=== PATIENT | female | born 1965 | race American Indian/Alaskan Native ===

== ENCOUNTER 2018-06-17 17:29 | Inpatient (IN) | payer SELFPAY ==
[2018-06-17] MEDS ORDERED: ZOFRAN IV ONE (18:04)
[2018-06-17] MEDS ORDERED: NACL 0.9% 500 ML 500 ML IV ONE ×2 (18:04→19:48)
[2018-06-17] MEDS ORDERED: MORPHINE IV ONE ×3 (18:04→23:44)
--- NOTE | 2018-06-17 18:06 | Emergency Department Report ---
<PRASHANT DEXTER - Last Filed: 06/17/18 19:48> ED General Adult HPI - General Chief complaint: Abdominal Pain Stated complaint: ABDOMINAL PAIN Time Seen by Provider: 06/17/18 17:47 Source: patient, RN notes reviewed Mode of arrival: Stretcher Limitations: No Limitations - History of Present Illness Initial comments: This is a 53-year-old female who is not known to this provider previously. She does not have a local primary care doctor. She denies history of abdominal surgeries. She reports history of "enlarged heart", and possible vertigo. She was last evaluated for these years ago. She presents to the ER with a complaint of nontraumatic right-sided abdominal pain. The abdominal pain is in the right lower quadrant, radiates up to the flank and back. The pain is sharp and constant, increases with palpation, decreases with rest. There is no vomiting, not sure she's had a fever, not sure if she is having irritative or obstructive urinary symptoms. Her symptoms have been constant for the past few days, and they are getting worse. -: Gradual Location: abdomen Severity scale (0 -10): 10 Quality: aching Consistency: constant Improves with: rest Worsens with: movement Associated Symptoms: loss of appetite, malaise, weakness. denies: confusion, chest pain, cough, diaphoresis, fever/chills, headaches, rash, seizure, shortness of breath, syncope - Related Data Home Medications Medication Instructions Recorded Confirmed Last Taken No Known Home Medications [No 06/18/18 06/18/18 Unknown Reported Home Medications] Allergies Allergy/AdvReac Type Severity Reaction Status Date / Time No Known Allergies Allergy Unverified 06/17/18 20:31 ED Review of Systems Eyes: denies: vision change ENT: denies: epistaxis Cardiovascular: denies: chest pain Gastrointestinal: abdominal pain Genitourinary: denies: dysuria Musculoskeletal: back pain Skin: denies: lesions Neurological: weakness Psychiatric: denies: anxiety ED Past Medical Hx - Past Medical History Additional medical history: Vertigo, Enlarged Heart - Surgical History Past Surgical History?: No - Social History Smoking Status: Current Every Day Smoker Substance Use Type: None - Medications Home Medications: Home Medications Medication Instructions Recorded Confirmed Last Taken Type No Known Home Medications [No 06/18/18 06/18/18 Unknown History Reported Home Medications] ED Physical Exam - General Limitations: No Limitations General appearance: alert, in distress, obese - Head Head exam: Present: atraumatic, normocephalic - Eye Eye exam: Present: normal appearance - ENT ENT exam: Present: normal exam, normal orophraynx, mucous membranes moist, normal external ear exam - Neck Neck exam: Present: normal inspection, full ROM. Absent: tenderness, meningismus - Respiratory Respiratory exam: Present: normal lung sounds bilaterally. Absent: respiratory distress - Cardiovascular Cardiovascular Exam: Present: regular rate, normal rhythm, normal heart sounds. Absent: bradycardia, tachycardia, irregular rhythm, systolic murmur, diastolic murmur, rubs, gallop - GI/Abdominal GI/Abdominal exam: Present: soft, tenderness. Absent: distended, guarding, rebound, rigid, pulsatile mass - Extremities Exam Extremities exam: Present: normal inspection, full ROM, other (2+ pulses noted in the bilateral upper, lower extremities. Compartments soft. No long bony tenderness. The pelvis is stable.). Absent: pedal edema, joint swelling, calf tenderness - Back Exam Back exam: Present: normal inspection, full ROM. Absent: tenderness, CVA tenderness (R), paraspinal tenderness, vertebral tenderness - Neurological Exam Neurological exam: Present: alert, oriented X3, CN II-XII intact, normal gait, other (Extraocular movements intact. Tongue midline. No facial droop. Facial sensation intact to light touch in the V1, V2, V3 distribution bilaterally. 5 and 5 strength in 4 extremities.. Sensation is intact to light touch in 4 extremities.). Absent: motor sensory deficit - Psychiatric Psychiatric exam: Present: anxious - Skin Skin exam: Present: warm, dry, intact, normal color. Absent: rash ED Course - Reevaluation(s) Reevaluation #1: 06/17/18 19:38 Differential diagnosis, including but not limited to: Appendicitis, colitis, diverticulitis, infected renal stone, nephrolithiasis, cholecystitis Assessment and plan: 53-year-old female with diffuse right-sided abdominal pain, and right lower quadrant, right flank and right upper quadrant tenderness. Low- grade temperature, also found to have leukocytosis. Patient felt improved after pain medication. CT scan of the abdomen and pelvis is pending. Antibiotics ordered. Care will be transferred to the overnight physician, Dr. Cruz, to follow up on CT scan, and right upper quadrant ultrasound. Would recommend admission to the hospital for abdominal pain, leukocytosis, and low-grade temperature. Consults, additional therapies as indicated, directed by imaging studies. ED Medical Decision Making - Lab Data Result diagrams: 06/17/18 18:09 06/17/18 18:09 Vital Signs 06/17/18 06/17/18 17:38 18:31 Temperature 99.2 F Pulse Rate 82 Respiratory 18 Rate Blood Pressure 110/70 Lab Results 06/17/18 06/17/18 06/17/18 Range/Units 18:09 18:09 18:09 WBC 26.8 H (4.5-11.0) K/mm3 RBC 4.10 (3.65-5.03) M/mm3 Hgb 13.3 (10.1-14.3) gm/dl Hct 38.5 (30.3-42.9) % MCV 94 (79-97) fl MCH 33 H (28-32) pg MCHC 35 H (30-34) % RDW 13.2 (13.2-15.2) % Plt Count 288 (140-440) K/mm3 PT 14.5 (12.2-14.9) Sec. INR 1.09 (0.87-1.13) APTT 28.8 (24.2-36.6) Sec. Sodium 136 L (137-145) mmol/L Potassium 3.9 (3.6-5.0) mmol/L Chloride 97.7 L (98-107) mmol/L Carbon Dioxide 22 (22-30) mmol/L Anion Gap 20 mmol/L BUN 7 (7-17) mg/dL Creatinine 0.9 (0.7-1.2) mg/dL Estimated GFR > 60 ml/min BUN/Creatinine Ratio 8 % Glucose 99 (65-100) mg/dL Lactic Acid (0.7-2.0) mmol/L Calcium 8.9 (8.4-10.2) mg/dL Total Bilirubin 0.50 (0.1-1.2) mg/dL AST 17 (5-40) units/L ALT 14 (7-56) units/L Alkaline Phosphatase 89 (35-129) units/L Total Protein 7.9 (6.3-8.2) g/dL Albumin 3.9 (3.9-5) g/dL Albumin/Globulin Ratio 1.0 % Lipase 16 (13-60) units/L 06/17/18 Range/Units 18:09 WBC (4.5-11.0) K/mm3 RBC (3.65-5.03) M/mm3 Hgb (10.1-14.3) gm/dl Hct (30.3-42.9) % MCV (79-97) fl MCH (28-32) pg MCHC (30-34) % RDW (13.2-15.2) % Plt Count (140-440) K/mm3 PT (12.2-14.9) Sec. INR (0.87-1.13) APTT (24.2-36.6) Sec. Sodium (137-145) mmol/L Potassium (3.6-5.0) mmol/L Chloride (98-107) mmol/L Carbon Dioxide (22-30) mmol/L Anion Gap mmol/L BUN (7-17) mg/dL Creatinine (0.7-1.2) mg/dL Estimated GFR ml/min BUN/Creatinine Ratio % Glucose (65-100) mg/dL Lactic Acid 0.90 (0.7-2.0) mmol/L Calcium (8.4-10.2) mg/dL Total Bilirubin (0.1-1.2) mg/dL AST (5-40) units/L ALT (7-56) units/L Alkaline Phosphatase (35-129) units/L Total Protein (6.3-8.2) g/dL Albumin (3.9-5) g/dL Albumin/Globulin Ratio % Lipase (13-60) units/L - EKG Data -: EKG Interpreted by Ak EKG shows normal: sinus rhythm Rate: normal - EKG Data 06/17/18 19:48 Sinus, 73 bpm, normal axis, QTC prolonged, Q waves 1, aVL, abnormal EKG, no prior for comparison, not consistent with ST elevation myocardial infarction. - Radiology Data Radiology results: pending ED Disposition Clinical Impression: Pyelonephritis Disposition: OP ADMIT IP TO THIS HOSP Condition: Stable <ALVIN CRUZ - Last Filed: 06/23/18 01:48> ED Review of Systems ROS: Stated complaint: ABDOMINAL PAIN Other details as noted in HPI ED Course Vital Signs 06/17/18 06/17/18 06/17/18 17:38 18:31 18:50 Temperature 99.2 F Pulse Rate 82 77 Respiratory 18 13 Rate Blood Pressure 110/70 113/46 Blood Pressure [Right] O2 Sat by Pulse 96 Oximetry 06/17/18 06/17/18 06/17/18 19:00 19:10 19:20 Temperature Pulse Rate 77 75 76 Respiratory 17 19 22 Rate Blood Pressure 113/53 113/53 104/53 Blood Pressure [Right] O2 Sat by Pulse 97 97 95 Oximetry 06/17/18 06/17/18 06/17/18 19:30 19:40 19:50 Temperature Pulse Rate 74 74 74 Respiratory 20 19 20 Rate Blood Pressure 107/67 107/67 99/63 Blood Pressure [Right] O2 Sat by Pulse 99 97 97 Oximetry 06/17/18 06/17/18 06/17/18 20:00 20:10 20:20 Temperature Pulse Rate 77 75 73 Respiratory 17 13 18 Rate Blood Pressure 105/62 105/62 102/61 Blood Pressure [Right] O2 Sat by Pulse 94 98 96 Oximetry 06/17/18 06/17/18 06/17/18 21:38 21:40 21:50 Temperature Pulse Rate Respiratory Rate Blood Pressure 102/61 102/61 111/62 Blood Pressure [Right] O2 Sat by Pulse 99 97 97 Oximetry 06/17/18 06/17/18 06/17/18 22:00 22:10 22:20 Temperature Pulse Rate Respiratory Rate Blood Pressure 102/61 123/66 123/66 Blood Pressure [Right] O2 Sat by Pulse 96 96 94 Oximetry 06/17/18 06/17/18 06/17/18 22:30 22:40 22:50 Temperature Pulse Rate Respiratory Rate Blood Pressure 123/66 111/62 111/62 Blood Pressure [Right] O2 Sat by Pulse 95 96 95 Oximetry 06/17/18 06/17/18 06/17/18 23:00 23:10 23:20 Temperature Pulse Rate Respiratory Rate Blood Pressure 113/57 113/57 113/57 Blood Pressure [Right] O2 Sat by Pulse 94 93 95 Oximetry 06/17/18 06/17/18 06/17/18 23:30 23:38 23:40 Temperature 100.4 F H Pulse Rate 77 Respiratory 18 Rate Blood Pressure 113/57 113/57 Blood Pressure 113/57 [Right] O2 Sat by Pulse 96 96 96 Oximetry 06/17/18 06/18/18 06/18/18 23:45 00:44 00:50 Temperature Pulse Rate 78 Respiratory 18 16 Rate Blood Pressure 113/57 113/57 Blood Pressure [Right] O2 Sat by Pulse 99 97 Oximetry 06/18/18 06/18/18 06/18/18 01:00 01:10 01:20 Temperature 99.3 F Pulse Rate 80 75 78 Respiratory 18 19 15 Rate Blood Pressure 110/49 110/49 110/49 Blood Pressure 110/49 [Right] O2 Sat by Pulse 97 97 96 Oximetry 06/18/18 06/18/18 06/18/18 01:30 01:40 01:50 Temperature Pulse Rate 75 71 71 Respiratory 18 14 10 L Rate Blood Pressure 110/49 110/49 110/49 Blood Pressure [Right] O2 Sat by Pulse 97 97 99 Oximetry 06/18/18 06/18/18 06/18/18 02:00 02:01 02:10 Temperature Pulse Rate 71 68 65 Respiratory 19 18 12 Rate Blood Pressure 100/51 100/51 Blood Pressure 100/51 [Right] O2 Sat by Pulse 95 97 99 Oximetry 06/18/18 06/18/18 06/18/18 02:20 02:30 02:40 Temperature Pulse Rate 65 65 67 Respiratory 19 15 16 Rate Blood Pressure 100/51 100/51 100/51 Blood Pressure [Right] O2 Sat by Pulse 99 97 98 Oximetry 06/18/18 06/18/18 06/18/18 02:50 03:00 03:10 Temperature 99.0 F Pulse Rate 65 61 64 Respiratory 16 14 14 Rate Blood Pressure 100/51 93/50 93/50 Blood Pressure 93/50 [Right] O2 Sat by Pulse 97 99 99 Oximetry 06/18/18 06/18/18 06/18/18 03:20 03:30 03:40 Temperature Pulse Rate 59 L 67 62 Respiratory 15 19 17 Rate Blood Pressure 93/50 93/50 93/50 Blood Pressure [Right] O2 Sat by Pulse 99 97 97 Oximetry 06/18/18 06/18/18 06/18/18 03:50 04:00 04:10 Temperature Pulse Rate 63 59 L 58 L Respiratory 15 15 16 Rate Blood Pressure 93/50 93/47 93/50 Blood Pressure [Right] O2 Sat by Pulse 97 97 99 Oximetry 06/18/18 06/18/18 06/18/18 04:20 04:30 04:40 Temperature Pulse Rate 60 57 L 60 Respiratory 18 16 18 Rate Blood Pressure 93/50 93/50 93/47 Blood Pressure [Right] O2 Sat by Pulse 99 99 99 Oximetry ED Medical Decision Making - Lab Data Result diagrams: 06/20/18 05:44 06/20/18 05:44 - Medical Decision Making I received this patient as a signout from Dr. Dexter. Patient presented with abdominal pain and right flank pain. Patient elevated white count of 26.8 with bandemia of 8%. Patient initially afebrile, however spiked a temperature 100.4 while in the ED. Cultures were drawn and a dose of Zosyn was given. There was a delay in obtaing results of patient's CT due to tech issues and images not crossing over for the radiologist. This issue was resolved and CT abdomen and pelvis negative for any acute findings, as well as ultrasound of the abdomen particularly looking at the right upper quadrant. UA shows evidence of UTI. On my exam patient has right CVA tenderness right upper quadrant, right lower quadrant, and suprapubic tenderness. Patient likely has pyelonephritis which is causing her symptoms. Patient has required multiple doses of pain medication to control her pain. Vital signs are stable. Spoke with Dr. Velázquez, hospitalist, who agrees to admit the patient. Critical care attestation.: If time is entered above; I have spent that time in minutes in the direct care of this critically ill patient, excluding procedure time. ED Disposition Is pt being admited?: Yes
[2018-06-17 18:30] LABS: Hematocrit 38.5 % (30.3-42.9); Hemoglobin 13.3 gm/dl (10.1-14.3); Mean Corpuscular HGB Conc 35 % (30-34); Mean Corpuscular Volume 94 fl (79-97); Platelet Count 288 K/mm3 (140-440); Red Cell Distribution Width 13.2 % (13.2-15.2)
[2018-06-17 18:37] LABS: INR 1.09 (0.87-1.13)
[2018-06-17 18:38] LABS: Partial Thromboplastin Time 28.8 Sec. (24.2-36.6)
[2018-06-17 18:42] LABS: Alanine Aminotransferase 14 units/L (7-56); Albumin 3.9 g/dL (3.9-5); BUN/Creatinine Ratio 8; Blood Urea Nitrogen 7 mg/dL (7-17); Calcium 8.9 mg/dL (8.4-10.2); Hemolysis Index 9
[2018-06-17] MEDS ORDERED: ZOSYN/NS 4.5GM/100ML 4.5 GM/100 ML VIAL IV ONE (19:24)
[2018-06-17 19:44] LABS: Band Neutrophils # (Manual) 2.1 K/mm3; Basophils % (Manual) 0 % (0.0-1.8); Eosinophils % (Manual) 0 % (0.0-4.3); Total Cells Counted 100
[2018-06-17 19:45] LABS: RBC Morphology Normal
[2018-06-17] MEDS ORDERED: NACL 0.9% 1000 ML 1,000 ML ONE (20:08)
--- NOTE | 2018-06-17 21:23 | Ultrasound Report ---
FINAL REPORT PROCEDURE: US ABDOMEN LIMITED TECHNIQUE: Real-time sonography in multiple planes of the gallbladder fossa and CBD with imaging of the adjacent liver, pancreas, and right kidney was performed with image documentation. CPT 80649 HISTORY: ruq pain COMPARISON: No prior studies are available for comparison. FINDINGS: Liver: Normal size and echotexture with no evidence of cystic or solid mass lesion. Gallbladder: There is no cholelithiasis. There is no gallbladder wall thickening or pericholecystic f luid. The. Intrahepatic bile ducts: Normal . Extrahepatic bile ducts: Normal . Pancreas: Normal as visualized with suboptimal depiction of the pancreatic tail. Right kidney: Normal echotexture. No focal renal mass, calculus, or hydronephrosis. Other: No free fluid. IMPRESSION: There are no gallstones. There is no sonographic evidence of cholecystitis. There is no biliary ducta l dilatation.
[2018-06-17] MEDS ORDERED: BENADRYL IV ONE (21:36)
[2018-06-17] MEDS ORDERED: TYLENOL PO ONE (23:44)
--- NOTE | 2018-06-17 23:47 | Cat Scan Report ---
FINAL REPORT PROCEDURE: CT ABD AND PELVIS W CONTRAST TECHNIQUE: Computerized axial tomography of the abdomen and pelvis was performed after the IV inject ion of iodinated nonionic contrast. HISTORY: PAIN COMPARISON: No prior studies are available for comparison. FINDINGS: Visualized lower thorax: No significant abnormality. Liver: Normal size and attenuation. There is focal fatty infiltration along the falciform ligament. Spleen: Normal size and attenuation. Gallbladder and biliary system: Normal. Pancreas: Normal. Adrenals: Normal. Kidneys: Normal. GI tract: There is no bowel obstruction, colitis or enteritis. The appendix is normal.. Lymph nodes and mesentery: Normal. Vasculature: Normal. Bladder: Normal. Reproductive organs: Uterus is prominent. There is no discrete mass. There is a 2.4 centimeter low-de nsity the mass in the right adnexal region which could be an involuting right ovarian cyst.. Peritoneum: There is minimal free pelvic fluid. There is no free air, abscess or adenopathy.. Musculoskeletal structures: No significant abnormality. Other: None. IMPRESSION: There is no bowel obstruction, colitis or enteritis. The appendix is normal.. Uterus is prominent. There is no uterus discrete mass. There is a 2.4 centimeter low-density the mass in the right adnexal region which could be an involuti ng right ovarian cyst.. There is minimal free pelvic fluid. There is no free air, abscess or adenopathy..
[2018-06-18 00:59] LABS: Bilirubin,Urine NEG (Negative); Blood,Urine LG (Negative); Color,Urine Yellow (Yellow)
[2018-06-18] MEDS ORDERED: SODIUM CHLORIDE FLUSH SYRINGE 10 ML IV PRN (02:01)
[2018-06-18] MEDS ORDERED: TYLENOL PO PRN (02:01)
[2018-06-18] MEDS ORDERED: ZOFRAN IV PRN (02:01)
--- NOTE | 2018-06-18 02:41 | History and Physical Report ---
History of Present Illness Date of examination: 06/18/18 History of present illness: 53-year-old woman history of vertigo comes emergency room complaining of lower abdominal pain that started on . She describes the pain as crampy, intermittent oxygen for a few minutes, intensity 5/10, radiating to the right flank. Complains of fever or chills, urinary frequency, no dysuria. Also admits to decreased oral intake Review of systems Constitutional: no weight loss Ears, eyes, nose, mouth and throat: no nasal congestion, no nasal discharge, no sinus pressure, no vision change, no red eye. Neck: No neck pain or rigidity. Cardiovascular: no palpitations, chest pain Respiratory: no cough, shortness of breath Gastrointestinal: no hematochezia, abdominal pain Genitourinary : no hematuria Musculoskeletal: no joint swelling or muscle ache Integumentary: no rash, no pruritis Neurological: no parathesias, no focal weakness Endocrine: no cold or heat intolerance, no polyuria or polydipsia Hematologic/Lymphatic: no easy bruising, no easy bleeding, no gland swelling Allergic/Immunologic: no urticaria, no angioedema. PAST MEDICAL HISTORY: vertigo PAST SURGICAL HISTORY: Tubal ligation SOCIAL HISTORY: Denies alcohol, drugs, tobacco FAMILY HISTORY: Hypertension Medications and Allergies Allergies Allergy/AdvReac Type Severity Reaction Status Date / Time No Known Allergies Allergy Unverified 06/17/18 20:31 Active Meds: Active Medications Acetaminophen (Tylenol) 650 mg PO Q4H PRN PRN Reason: Pain MILD(1-3)/Fever >100.5/MONTERROSO Enoxaparin Sodium (Lovenox) 40 mg SUB-Q QDAY [facility] Sodium Chloride (Nacl 0.9% 1000 Ml) 1,000 mls @ 125 mls/hr IV DIRECT IRWIN Morphine Sulfate (Morphine) 2 mg IV Q4H PRN PRN Reason: Pain, Moderate (4-6) Ondansetron HCl (Zofran) 4 mg IV Q8H PRN PRN Reason: Nausea And Vomiting Sodium Chloride (Sodium Chloride Flush Syringe 10 Ml) 10 ml IV BID IRWIN Sodium Chloride (Sodium Chloride Flush Syringe 10 Ml) 10 ml IV PRN PRN PRN Reason: LINE FLUSH Exam - Physical Exam Narrative exam: General Apperance: The patient lying in bed, breathing comfortable HEENT: Normocephalic, atraumatic. Pupils equally round and reactive to light, EOMI, no sclericterus or JVD or thyromegaly or nodule. , no carotid bruit, mucous membranes moist, no exudate or erythema Heart: S1-S2, regular is rhythm Lungs: Clear to auscultation bilaterally, breathing comfortable Abdomen: Positive bowel sounds, soft, tender in the lower abdomen, nondistended, no organomegaly Extremities: No edema cyanosis clubbing Skin: no rash, nodule, warm and dry Neuro: cranial nerves 2-12 intact, speech is fluent, motor/sensory intact - Constitutional Vitals: Temp Pulse Resp BP Pulse Ox 99.3 F 79 12 110/49 96 06/18/18 01:00 06/18/18 01:00 06/18/18 01:00 06/18/18 01:00 06/18/18 01:00 Results - Labs CBC & Chem 7: 06/17/18 18:09 06/17/18 18:09 Labs: Abnormal lab results 06/17/18 06/17/18 06/17/18 Range/Units 18:09 18:09 Unknown WBC 26.8 H (4.5-11.0) K/mm3 MCH 33 H (28-32) pg MCHC 35 H (30-34) % Seg Neuts % (Manual) 82.0 H (40.0-70.0) % Lymphocytes % (Manual) 5.0 L (13.4-35.0) % Seg Neutrophils # Man 22.0 H (1.8-7.7) K/mm3 Monocytes # (Manual) 1.3 H (0.0-0.8) K/mm3 Sodium 136 L (137-145) mmol/L Chloride 97.7 L (98-107) mmol/L Ur Specific [place] > 1.059 H (1.003-1.030) Urine WBC (Auto) 17.0 H (0.0-6.0) /HPF U Epithel Cells (Auto) 17.0 H (0-13.0) /HPF - Imaging and Cardiology CT scan - abdomen: report reviewed CT scan - pelvis: report reviewed US - abdomen: report reviewed Assessment and Plan Assessment Sepsis UTI Vertigo Plan Admit to medicine Start IV fluids, antibiotic, IV morphine, follow cultures DVT prophylaxis
[2018-06-18] MEDS: NACL 0.9% 1000 ML 1,000 ML IV SCH ×2 (05:11→16:11)
[2018-06-18] MEDS: MORPHINE IV PRN ×3 (05:12→21:28)
[2018-06-18 06:00] LABS: Hematocrit 36.4 % (30.3-42.9); Hemoglobin 11.9 gm/dl (10.1-14.3); Mean Corpuscular HGB Conc 33 % (30-34); Mean Corpuscular Volume 97 fl (79-97); Platelet Count 250 K/mm3 (140-440); Red Blood Count 3.74 M/mm3 (3.65-5.03); Red Cell Distribution Width 13.9 % (13.2-15.2)
[2018-06-18 06:18] LABS: BUN/Creatinine Ratio 9; Blood Urea Nitrogen 8 mg/dL (7-17); Calcium 8.3 mg/dL (8.4-10.2); Hemolysis Index 99
[2018-06-18 07:28] LABS: Band Neutrophils # (Manual) 0.4 K/mm3; Basophils % (Manual) 0 % (0.0-1.8); Eosinophils % (Manual) 0 % (0.0-4.3); Platelet Clumps Few; Platelet Estimate Consistent w Auto; RBC Morphology Normal; Total Cells Counted 100
[2018-06-18] MEDS: ROCEPHIN/NS 1 GM/50 ML 1 GM/50 ML BAG IV SCH (10:28)
[2018-06-18] MEDS: LOVENOX SUB-Q SCH (10:28)
[2018-06-18] MEDS: SODIUM CHLORIDE FLUSH SYRINGE 10 ML IV SCH ×2 (10:29→21:29)
--- NOTE | 2018-06-18 18:25 | Event Note ---
Date: 06/18/18 Patient seen and examined medical records reviewed Patient was admitted this morning with sepsis UTI and vertigo Agree with the current management Follow cultures, closely monitor and adjust management as needed Plan of care reviewed with the patient and her nurse
[2018-06-19] MEDS: NACL 0.9% 1000 ML 1,000 ML IV SCH ×2 (00:42→10:40)
[2018-06-19] MEDS: MORPHINE IV PRN ×5 (02:10→21:35)
[2018-06-19 06:21] LABS: Basophils % (Auto) 0.1 % (0.0-1.8); Eosinophils % (Auto) 0.2 % (0.0-4.3); Hematocrit 32.8 % (30.3-42.9); Hemoglobin 10.9 gm/dl (10.1-14.3); Lymphocytes % (Auto) 15.8 % (13.4-35.0); Mean Corpuscular HGB Conc 33 % (30-34); Mean Corpuscular Volume 95 fl (79-97); Monocytes # (Auto) 1.3 K/mm3 (0.0-0.8); Monocytes % (Auto) 10.6 % (0.0-7.3); Platelet Count 251 K/mm3 (140-440); Red Blood Count 3.45 M/mm3 (3.65-5.03); Red Cell Distribution Width 13.3 % (13.2-15.2)
[2018-06-19 06:43] LABS: BUN/Creatinine Ratio 12; Blood Urea Nitrogen 7 mg/dL (7-17); Calcium 8.1 mg/dL (8.4-10.2); Hemolysis Index 0
[2018-06-19] MEDS: ROCEPHIN/NS 1 GM/50 ML 1 GM/50 ML BAG IV SCH (10:41)
[2018-06-19] MEDS: LOVENOX SUB-Q SCH (10:44)
[2018-06-19] MEDS: SODIUM CHLORIDE FLUSH SYRINGE 10 ML IV SCH ×2 (10:44→21:42)
--- NOTE | 2018-06-19 18:30 | Progress Note ---
Assessment and Plan Assessment and plan: --Sepsis secondary to urinary tract infection; continue empiric antibiotics Follow cultures, IV fluids --Leukocytosis; secondary sepsis due to UTI Trending down, follow cultures, continue antibiotics --Hypokalemia; replace per protocol and monitor levels --Obesity; BMI 36.6; advised weight reduction and stable --Ongoing tobacco use; smoking cessation counseling, nicotine patch --DVT prophylaxis; Lovenox Closely monitor the patient Possible discharge in 1-2 days if stable History Interval history: Patient seen and examined this morning medical records reviewed Patient feels slightly better, complains of general weakness Admitted with urinary tract infection On empiric antibiotics Vital signs noted Not in acute distress Hospitalist Physical - Constitutional Vitals: Temp Pulse Resp BP Pulse Ox 98.8 F 63 18 116/56 98 06/19/18 06:04 06/19/18 06:04 06/19/18 06:22 06/19/18 06:04 06/19/18 10:00 General appearance: Present: no acute distress, well-nourished, obese - EENT Eyes: Present: PERRL, EOM intact - Neck Neck: Present: supple, normal ROM - Respiratory Respiratory effort: normal Respiratory: bilateral: diminished, negative: rales, rhonchi, wheezing - Cardiovascular Rhythm: regular Heart Sounds: Present: S1 & S2 - Extremities Extremities: no ischemia, No edema - Abdominal General gastrointestinal: soft, non-tender, non-distended, normal bowel sounds - Integumentary Integumentary: Present: clear, warm - Psychiatric Psychiatric: appropriate mood/affect, cooperative - Neurologic Neurologic: CNII-XII intact, moves all extremities Results - Labs CBC & Chem 7: 06/19/18 05:00 06/19/18 05:00 Labs: Laboratory Last Values WBC 12.5 K/mm3 (4.5-11.0) H 06/19/18 05:00 RBC 3.45 M/mm3 (3.65-5.03) L 06/19/18 05:00 Hgb 10.9 gm/dl (10.1-14.3) 06/19/18 05:00 Hct 32.8 % (30.3-42.9) 06/19/18 05:00 MCV 95 fl (79-97) 06/19/18 05:00 MCH 32 pg (28-32) 06/19/18 05:00 MCHC 33 % (30-34) 06/19/18 05:00 RDW 13.3 % (13.2-15.2) 06/19/18 05:00 Plt Count 251 K/mm3 (140-440) 06/19/18 05:00 Lymph % (Auto) 15.8 % (13.4-35.0) 06/19/18 05:00 Todd % (Auto) 10.6 % (0.0-7.3) H 06/19/18 05:00 Eos % (Auto) 0.2 % (0.0-4.3) 06/19/18 05:00 Baso % (Auto) 0.1 % (0.0-1.8) 06/19/18 05:00 Lymph # 2.0 K/mm3 (1.2-5.4) 06/19/18 05:00 Todd # 1.3 K/mm3 (0.0-0.8) H 06/19/18 05:00 Eos # 0.0 K/mm3 (0.0-0.4) 06/19/18 05:00 Baso # 0.0 K/mm3 (0.0-0.1) 06/19/18 05:00 Add Manual Diff Complete 06/18/18 05:03 Total Counted 100 06/18/18 05:03 Seg Neutrophils % 73.3 % (40.0-70.0) H 06/19/18 05:00 Seg Neuts % (Manual) 87.0 % (40.0-70.0) H 06/18/18 05:03 Band Neutrophils % 2.0 % 06/18/18 05:03 Lymphocytes % (Manual) 6.0 % (13.4-35.0) L 06/18/18 05:03 Reactive Lymphs % (Man) 0 % 06/18/18 05:03 Monocytes % (Manual) 5.0 % (0.0-7.3) 06/18/18 05:03 Eosinophils % (Manual) 0 % (0.0-4.3) 06/18/18 05:03 Basophils % (Manual) 0 % (0.0-1.8) 06/18/18 05:03 Metamyelocytes % 0 % 06/18/18 05:03 Myelocytes % 0 % 06/18/18 05:03 Promyelocytes % 0 % 06/18/18 05:03 Blast Cells % 0 % 06/18/18 05:03 Nucleated RBC % Not Reportable 06/18/18 05:03 Seg Neutrophils # 9.1 K/mm3 (1.8-7.7) H 06/19/18 05:00 Seg Neutrophils # Man 17.8 K/mm3 (1.8-7.7) H 06/18/18 05:03 Band Neutrophils # 0.4 K/mm3 06/18/18 05:03 Lymphocytes # (Manual) 1.2 K/mm3 (1.2-5.4) 06/18/18 05:03 Abs React Lymphs (Man) 0.0 K/mm3 06/18/18 05:03 Monocytes # (Manual) 1.0 K/mm3 (0.0-0.8) H 06/18/18 05:03 Eosinophils # (Manual) 0.0 K/mm3 (0.0-0.4) 06/18/18 05:03 Basophils # (Manual) 0.0 K/mm3 (0.0-0.1) 06/18/18 05:03 Metamyelocytes # 0.0 K/mm3 06/18/18 05:03 Myelocytes # 0.0 K/mm3 06/18/18 05:03 Promyelocytes # 0.0 K/mm3 06/18/18 05:03 Blast Cells # 0.0 K/mm3 06/18/18 05:03 WBC Morphology Not Reportable 06/18/18 05:03 Hypersegmented Neuts Not Reportable 06/18/18 05:03 Hyposegmented Neuts Not Reportable 06/18/18 05:03 Hypogranular Neuts Not Reportable 06/18/18 05:03 Smudge Cells Not Reportable 06/18/18 05:03 Toxic Granulation Not Reportable 06/18/18 05:03 Toxic Vacuolation Not Reportable 06/18/18 05:03 Dohle Bodies Not Reportable 06/18/18 05:03 Pelger-Huet Anomaly Not Reportable 06/18/18 05:03 Rolly Rods Not Reportable 06/18/18 05:03 Platelet Estimate Consistent w auto 06/18/18 05:03 Clumped Platelets Few 06/18/18 05:03 Plt Clumps, EDTA Not Reportable 06/18/18 05:03 Large Platelets Not Reportable 06/18/18 05:03 Giant Platelets Not Reportable 06/18/18 05:03 Platelet Satelliting Not Reportable 06/18/18 05:03 Plt Morphology Comment Not Reportable 06/18/18 05:03 RBC Morphology Normal 06/18/18 05:03 Dimorphic RBCs Not Reportable 06/18/18 05:03 Polychromasia Not Reportable 06/18/18 05:03 Hypochromasia Not Reportable 06/18/18 05:03 Poikilocytosis Not Reportable 06/18/18 05:03 Anisocytosis Not Reportable 06/18/18 05:03 Microcytosis Not Reportable 06/18/18 05:03 Macrocytosis Not Reportable 06/18/18 05:03 Spherocytes Not Reportable 06/18/18 05:03 Pappenheimer Bodies Not Reportable 06/18/18 05:03 Sickle Cells Not Reportable 06/18/18 05:03 Target Cells Not Reportable 06/18/18 05:03 Tear Drop Cells Not Reportable 06/18/18 05:03 Ovalocytes Not Reportable 06/18/18 05:03 Helmet Cells Not Reportable 06/18/18 05:03 [place] Bodies Not Reportable 06/18/18 05:03 [place] Rings Not Reportable 06/18/18 05:03 [place] Cells Not Reportable 06/18/18 05:03 Bite Cells Not Reportable 06/18/18 05:03 Crenated Cell Not Reportable 06/18/18 05:03 Elliptocytes Not Reportable 06/18/18 05:03 Acanthocytes (Spur) Not Reportable 06/18/18 05:03 Rouleaux Not Reportable 06/18/18 05:03 Hemoglobin C Crystals Not Reportable 06/18/18 05:03 Schistocytes Not Reportable 06/18/18 05:03 Malaria parasites Not Reportable 06/18/18 05:03 [place] Bodies Not Reportable 06/18/18 05:03 Hem Pathologist Commnt No 06/18/18 05:03 PT 14.5 Sec. (12.2-14.9) 06/17/18 18:09 INR 1.09 (0.87-1.13) 06/17/18 18:09 APTT 28.8 Sec. (24.2-36.6) 06/17/18 18:09 Sodium 139 mmol/L (137-145) 06/19/18 05:00 Potassium 3.5 mmol/L (3.6-5.0) L 06/19/18 05:00 Chloride 104.8 mmol/L (98-107) 06/19/18 05:00 Carbon Dioxide 23 mmol/L (22-30) 06/19/18 05:00 Anion Gap 15 mmol/L 06/19/18 05:00 BUN 7 mg/dL (7-17) 06/19/18 05:00 Creatinine 0.6 mg/dL (0.7-1.2) L 06/19/18 05:00 Estimated GFR > 60 ml/min 06/19/18 05:00 BUN/Creatinine Ratio 12 % 06/19/18 05:00 Glucose 84 mg/dL (65-100) 06/19/18 05:00 POC Glucose 82 (70-105) 06/19/18 07:46 Lactic Acid 0.90 mmol/L (0.7-2.0) 06/17/18 18:09 Calcium 8.1 mg/dL (8.4-10.2) L 06/19/18 05:00 Total Bilirubin 0.50 mg/dL (0.1-1.2) 06/17/18 18:09 AST 17 units/L (5-40) 06/17/18 18:09 ALT 14 units/L (7-56) 06/17/18 18:09 Alkaline Phosphatase 89 units/L (35-129) 06/17/18 18:09 Total Protein 7.9 g/dL (6.3-8.2) 06/17/18 18:09 Albumin 3.9 g/dL (3.9-5) 06/17/18 18:09 Albumin/Globulin Ratio 1.0 % 06/17/18 18:09 Lipase 16 units/L (13-60) 06/17/18 18:09 Urine Color Yellow (Yellow) 06/17/18 Unknown Urine Turbidity Clear (Clear) 06/17/18 Unknown Urine pH 6.0 (5.0-7.0) 06/17/18 Unknown Ur Specific [place] > 1.059 (1.003-1.030) H 06/17/18 Unknown Urine Protein 30 mg/dl mg/dL (Negative) 06/17/18 Unknown Urine Glucose (UA) Neg mg/dL (Negative) 06/17/18 Unknown Urine Ketones Neg mg/dL (Negative) 06/17/18 Unknown Urine Blood Lg (Negative) 06/17/18 Unknown Urine Nitrite Neg (Negative) 06/17/18 Unknown Urine Bilirubin Neg (Negative) 06/17/18 Unknown Urine Urobilinogen 4.0 mg/dL (<2.0) 06/17/18 Unknown Ur Leukocyte Esterase Tr (Negative) 06/17/18 Unknown Urine WBC (Auto) 17.0 /HPF (0.0-6.0) H 06/17/18 Unknown Urine RBC (Auto) 5.0 /HPF (0.0-6.0) 06/17/18 Unknown U Epithel Cells (Auto) 17.0 /HPF (0-13.0) H 06/17/18 Unknown Nutrition/Malnutrition Assess - Dietary Evaluation Nutrition/Malnutrition Findings: Nutrition Notes Start: 06/19/18 14:40 Freq: Status: Active Protocol: Document 06/19/18 14:40 RM (Rec: 06/19/18 14:46 RM [id number]) Nutrition Notes Need for Assessment generated from: office analyst MST Initial or Follow up Brief Note Current Diagnosis Sepsis Other Pertinent Diagnosis UTI, vertigo Current Diet Regular Labs/Tests Reviewed Pertinent Medications Reviewed Height 5 ft 5 in Weight 99.8 kg [place] Body Weight (kg) 56.81 BMI 36.6 Subjective/Other Information Screened for malnutrition. Pt with case management at time of visit. Recorded PO intake 100% X 3 meals. Burn Absent Trauma Absent Nutrition Intervention Follow-Up By: 06/21/18 Additional Comments Follow for malnutrition assessment, stable intakes, need for supplement
[2018-06-20] MEDS: MORPHINE IV PRN (01:59)
[2018-06-20 04:39] VITALS: BP 135/69
[2018-06-20] MEDS: NACL 0.9% 1000 ML 1,000 ML IV SCH (04:52)
[2018-06-20 06:16] LABS: Basophils % (Auto) 0.3 % (0.0-1.8); Eosinophils % (Auto) 0.3 % (0.0-4.3); Hematocrit 31.3 % (30.3-42.9); Hemoglobin 10.5 gm/dl (10.1-14.3); Lymphocytes # (Auto) 1.6 K/mm3 (1.2-5.4); Lymphocytes % (Auto) 16.5 % (13.4-35.0); Mean Corpuscular HGB Conc 34 % (30-34); Mean Corpuscular Volume 96 fl (79-97); Monocytes % (Auto) 10.3 % (0.0-7.3); Platelet Count 271 K/mm3 (140-440); Red Blood Count 3.27 M/mm3 (3.65-5.03); Red Cell Distribution Width 13.5 % (13.2-15.2)
[2018-06-20 06:38] LABS: BUN/Creatinine Ratio 7; Blood Urea Nitrogen 4 mg/dL (7-17); Calcium 8.2 mg/dL (8.4-10.2); Hemolysis Index 0
--- NOTE | 2018-07-21 14:00 | Discharge Summary ---
AGAINST MEDICAL ADVICE AND DISCHARGE NOTE DATE OF ADMISSION: 06/18/2018 DATE OF AMA AND DISCHARGE: 06/20/2018 FINAL DIAGNOSES: 1. Sepsis secondary to urinary tract infection. 2. Leukocytosis secondary to urinary tract infection. 3. Hypokalemia. 4. Obesity, body mass index is 36.6. 5. Ongoing tobacco use. BRIEF HISTORY AND HOSPITAL COURSE: A 53-year-old female patient with significant past medical history of vertigo, was admitted through Emergency Room with lower abdominal pain of 2-3 days' duration. The patient was initially evaluated, noted to have urinary tract infection and sepsis with WBC of 26.8, and temperature of 99.3. Urinalysis is consistent with UTI. The patient was admitted to the hospital, started on empiric antibiotics and was symptomatically managed for her vertigo; however, on 06/20/2018 even before I could round on the patient, the patient did not want to continue the treatment, did not want to stay in the hospital, wanted to leave against medical advice. Healthcare providers have counseled the patient on the risks and consequences of leaving AMA without completing the treatment; however, the patient verbalized understanding, but insisted on leaving against medical advice. I was not present when the patient left AMA. Please refer to medical records for all the other details. JOB# [id number] DANIEL/HEIDE
== END 2018-06-20 09:54 | disposition left against medical advice (07) | DRG 872 ==
LOC: ED 17:29 → 3A 06-18 03:17
PROVIDERS: ADMIT Internal Medicine; ATTEND Internal Medicine
DX: A41.9 Sepsis, unspecified organism (principal); N12 Tubulo-interstitial nephritis, not specified as acute or chronic; Z53.21 Procedure and treatment not carried out due to patient leaving prior to being seen by health care provider; F17.210 Nicotine dependence, cigarettes, uncomplicated; R42 Dizziness and giddiness; E87.6 Hypokalemia; E66.9 Obesity, unspecified; Z68.36 Body mass index [BMI] 36.0-36.9, adult; Z82.49 Family history of ischemic heart disease and other diseases of the circulatory system; Z98.51 Tubal ligation status
CPT/HCPCS: 36415; 74177; 76705; 80048; 80053; 81001; 82140; 82962; 83690; 85007; 85025; 85610; 85730; 87040; 87086; 93005; 93010; 96374; 99406; G0378; J0696; J1200; J1650; J2270; J2405; J2543; J7030; J7040; Q9967

== ENCOUNTER 2021-06-22 17:22 | Emergency (ER) | payer SELFPAY ==
[2021-06-22] MEDS ORDERED: KETOROLAC 30 MG/1 ML INJ IM ONE (23:36)
--- NOTE | 2021-06-22 23:54 | XRay Report ---
BILATERAL KNEE 4 VIEW(S) INDICATION / CLINICAL INFORMATION: BILATERAL KNEE INJURY COMPARISON: None available. FINDINGS: BONES / JOINT(S): No acute fracture or subluxation in either knee. 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 Small left joint effusion and tra ce right joint effusion. SOFT TISSUES: No significant abnormality. ADDITIONAL FINDINGS: None. Signer Name: Reinier Betancourt MD Signed: 06/22/2021 9:45 PM Workstation Name: [id number]
--- NOTE | 2021-06-23 00:38 | Emergency Department Report ---
ED Extremity Problem HPI - General Chief complaint: Extremity Injury, Lower Stated complaint: KNEE PAIN Source: patient Mode of arrival: Ambulatory Limitations: No Limitations - History of Present Illness Initial comments: 56-year-old female presents to the ED complaining of bilateral knee pain x 5 days . Patient states she walk up and down 9 stairways with 20 pound weight. Patient is currently obese. History of carpal tunnel and vertigo. Patient has no obvious edema , no distracting injury, no obvious deformity noted. Patient states that pain is a 8 out of 10 when she is bending or lifting. Patient states that prior treatment of ice and heat therapy has been unsuccessful. She states that she normally takes meloxicam and Neurontin but is out at present time. Patient is alert and oriented x3. No acute distress noted no ill appearance noted. MD Complaint: extremity pain Onset/Timin -: days(s) Location: bilateral lower extremity Severity scale (0 -10): 5 Associated Symptoms: denies other symptoms - Related Data Previous Rx's Medication Instructions Recorded Last Taken Type Gabapentin 300 mg PO BID 30 Days #60 cap 06/23/21 Unknown Rx Meloxicam, Submicronized 10 mg PO DAILY 30 Days #30 cap 06/23/21 Unknown Rx [Meloxicam] Allergies Allergy/AdvReac Type Severity Reaction Status Date / Time No Known Allergies Allergy Verified 06/22/21 20:49 ED Review of Systems ROS: Stated complaint: KNEE PAIN Other details as noted in HPI Constitutional: denies: chills, fever Eyes: denies: eye pain, eye discharge, vision change ENT: denies: ear pain, throat pain Respiratory: denies: cough, shortness of breath, wheezing Cardiovascular: denies: chest pain, palpitations Endocrine: no symptoms reported Gastrointestinal: denies: abdominal pain, nausea, diarrhea Genitourinary: denies: urgency, dysuria, discharge Musculoskeletal: denies: back pain, joint swelling, arthralgia Skin: denies: rash, lesions Neurological: denies: headache, weakness, paresthesias Psychiatric: denies: anxiety, depression Hematological/Lymphatic: denies: easy bleeding, easy bruising ED Past Medical Hx - Past Medical History Additional medical history: Vertigo, Enlarged Heart - Social History Smoking Status: Current Every Day Smoker - Medications Home Medications: Home Medications Medication Instructions Recorded Confirmed Last Taken Type Gabapentin 300 mg PO BID 30 Days #60 cap 06/23/21 Unknown Rx Meloxicam, Submicronized 10 mg PO DAILY 30 Days #30 cap 06/23/21 Unknown Rx [Meloxicam] ED Physical Exam - General Limitations: No Limitations General appearance: alert, in no apparent distress - Head Head exam: Present: atraumatic, normocephalic - Eye Eye exam: Present: normal appearance - ENT ENT exam: Present: mucous membranes moist - Neck Neck exam: Present: normal inspection - Respiratory Respiratory exam: Present: normal lung sounds bilaterally. Absent: respiratory distress - Cardiovascular Cardiovascular Exam: Present: regular rate, normal rhythm. Absent: systolic murmur, diastolic murmur, rubs, gallop - GI/Abdominal GI/Abdominal exam: Present: soft, normal bowel sounds - Extremities Exam Extremities exam: Present: normal inspection - Expanded Lower Extremity Exam Left Lower Leg exam: Present: normal inspection, full ROM Neuro vascular tendon exam: Present: no vascular compromise - Back Exam Back exam: Present: normal inspection - Neurological Exam Neurological exam: Present: alert, oriented X3 - Psychiatric Psychiatric exam: Present: normal affect, normal mood - Skin Skin exam: Present: warm, dry, intact, normal color. Absent: rash ED Course Vital Signs 06/22/21 06/23/21 20:41 01:32 Temperature 98.3 F Pulse Rate 77 62 Respiratory 19 14 Rate Blood Pressure 162/93 178/87 [Right] O2 Sat by Pulse 99 99 Oximetry ED Medical Decision Making - Radiology Data [facility] [address] [place] [address] XRay Report Signed Patient: NAKUL SORENSEN MR#: [id number] : 1965 Acct:[id number] Age/Sex: 56 / F ADM Date: 06/22/21 Loc: ED Attending Dr: Ordering Physician: MARIANNE HOPKINS Date of Service: 06/22/21 Procedure(s): XR knee BILAT 3V Accession Number(s): [id number] cc: MARIANNE HOPKINS Fluoro Time In Minutes: BILATERAL KNEE 4 VIEW(S) INDICATION / CLINICAL INFORMATION: BILATERAL KNEE INJURY COMPARISON: None available. FINDINGS: BONES / JOINT(S): No acute fracture or subluxation in either knee. Moderate tricompartmental DJD in both knees, most pronounced in the medial femorotibial compartments. Small left joint effusion and trace right joint effusion. SOFT TISSUES: No significant abnormality. ADDITIONAL FINDINGS: None. Signer Name: Reinier Betancourt MD Signed: 06/22/2021 9:45 PM Workstation Name: [id number] Transcribed By: DAVY Dictated By: REINIER BETANCOURT MD Electronically Authenticated By: REINIER BETANCOURT MD Signed Date/Time: 06/22/212144 DD/ 42 TD/TT: - Medical Decision Making 56-year-old female presents to the ED complaining of bilateral knee pain x 5 days . Patient states she walk up and down 9 stairways with 20 pound weight. Patient is currently obese. History of carpal tunnel and vertigo. Patient has no obvious edema , no distracting injury, no obvious deformity noted. Patient states that pain is a 8 out of 10 when she is bending or lifting. Patient states that prior treatment of ice and heat therapy has been unsuccessful. She states that she normally takes meloxicam and Neurontin but is out at present time. Patient is alert and oriented x3. No acute distress noted no ill appearance noted. Bilateral knee x-ray showed no acute fracture no subluxation. Physical Examination unremarkable. Patient is ambulatory. Rechecked the patient is resting quietly quietly and comfortable and feeling better. I discussed the results of diagnostic study, my clinical impression and the plan for further treatment with the patient. Patient agrees with plan and discharge at this present time. All question addressed. I have given the patient instruction regarding a diagnosis ,expectation ,follow-up and return precaution. I explained to the patient that emergent condition may arise and to return to the ED for new worsen and any new persisting condition. I have explained the importance of following up with the primary care physician or referral physician listed below has instructed. The patient verbalized understanding of discharge instruction. Critical care attestation.: If time is entered above; I have spent that time in minutes in the direct care of this critically ill patient, excluding procedure time. ED Disposition Clinical Impression: Bilateral knee pain Qualifiers: Chronicity: acute Qualified Code(s): M25.561 - Pain in right knee Disposition: HOME / SELF CARE / HOMELESS Is pt being admited?: No Does the pt Need Aspirin: No Condition: Stable Instructions: Acute Knee Pain, Adult, Acute Knee Pain, Adult, [id number] Additional Instructions: Follow up primary care as need Return to Emergency Room for worsen Take medication as prescribed Prescriptions: Gabapentin 300 mg PO BID 30 Days #60 cap Meloxicam, Submicronized [Meloxicam] 10 mg PO DAILY 30 Days #30 cap Referrals: PRIMARY CAREMD [Primary Care Provider] - 3-5 Days DEBRA OLIVER MD [Staff Physician] - 3-5 Days Forms: Work/School Release Form(ED)
[2021-06-23 01:32] VITALS: BP 178/87
== END 2021-06-23 01:33 | disposition home or self-care (01) ==
LOC: ED 17:22
DX: M25.562 Pain in left knee (principal); M25.561 Pain in right knee; F17.200 Nicotine dependence, unspecified, uncomplicated
CPT/HCPCS: 73562; 96372; 99283; J1885

== ENCOUNTER 2021-12-07 14:28 | Emergency (ER) | payer SELFPAY ==
[2021-12-07 14:51] VITALS: BP 147/96
--- NOTE | 2021-12-07 14:55 | Emergency Department Report ---
ED Extremity Problem HPI - General Stated complaint: LT ARM NUMBNESS/TINGLING Time Seen by Provider: 12/07/21 14:50 - History of Present Illness Initial comments: 56-year-old black female with a past medical history of hypertension presents to the emergency department for evaluation of pain and numbness to the left hand. She states that over the last several months, she has had intermittent pain and numbness to her left hand with tingling intermittently to her fingers. She states that symptoms are worse when she works and tends to get better when she is off. She states that sometimes she has numbness to her entire left arm. She states that this morning she woke up with increased pain with a burning-like feeling to the middle of her hand with some numbness to her third and fourth fingers. She states that she did sleep awkwardly last night and woke up lying on top of her hand. She states that symptoms have improved some since this morning but has not totally gone away. She denies any unilateral weakness, headache, vision problems, abnormal gait, and abnormal speech. MD Complaint: extremity pain -: Gradual, month(s) Location: left, upper extremity (Hand and fingers) History of Same: Yes -: No myalgia, No arthralgia, No fever, No associated dyspnea, No associated chest pain Severity scale (0 -10): 5 Quality: aching Consistency: intermittent Worsens with: exertion, other (Certain positions) Associated Symptoms: denies: chest pain, shortness of breath, fever, myalgias, arthralgias, rash - Related Data Previous Rx's Medication Instructions Recorded Last Taken Type Gabapentin 300 mg PO BID 30 Days #60 cap 06/23/21 Unknown Rx Meloxicam [Mobic] 7.5 mg PO QDAY #30 tablet 06/23/21 Unknown Rx methylPREDNISolone [Medrol 4MG 4 mg PO DAILY #1 pack 12/07/21 Unknown Rx DOSEPAK (21 tabs)] Allergies Allergy/AdvReac Type Severity Reaction Status Date / Time No Known Allergies Allergy Verified 06/22/21 20:49 ED Review of Systems ROS: Stated complaint: LT ARM NUMBNESS/TINGLING Other details as noted in HPI Comment: All other systems reviewed and negative Constitutional: denies: chills, fever, malaise, weakness Eyes: denies: vision change ENT: denies: congestion Respiratory: denies: shortness of breath, SOB with exertion, SOB at rest, stridor, wheezing Cardiovascular: denies: chest pain, palpitations, dyspnea on exertion, orthopnea Gastrointestinal: denies: abdominal pain, nausea, vomiting Musculoskeletal: denies: back pain Neurological: numbness, paresthesias. denies: headache, weakness, confusion, abnormal gait, vertigo ED Past Medical Hx - Past Medical History Additional medical history: Vertigo, Enlarged Heart - Social History Smoking Status: Current Every Day Smoker - Medications Home Medications: Home Medications Medication Instructions Recorded Confirmed Last Taken Type Gabapentin 300 mg PO BID 30 Days #60 cap 06/23/21 Unknown Rx Meloxicam [Mobic] 7.5 mg PO QDAY #30 tablet 06/23/21 Unknown Rx methylPREDNISolone [Medrol 4MG 4 mg PO DAILY #1 pack 12/07/21 Unknown Rx DOSEPAK (21 tabs)] ED Physical Exam - General General appearance: alert, in no apparent distress - Head Head exam: Present: atraumatic, normocephalic - Eye Eye exam: Present: normal appearance. Absent: conjunctival injection - Neck Neck exam: Present: normal inspection, tenderness (Left side only, no midline vertebral tenderness noted, pain worse with certain movements of the arm and with palpation), full ROM. Absent: lymphadenopathy - Respiratory Respiratory exam: Present: normal lung sounds bilaterally. Absent: respiratory distress, wheezes, rales, rhonchi, stridor, chest wall tenderness - Cardiovascular Cardiovascular Exam: Present: regular rate, normal heart sounds - GI/Abdominal GI/Abdominal exam: Present: soft, normal bowel sounds. Absent: distended, tenderness, guarding, rebound, rigid - Extremities Exam Extremities exam: Present: normal inspection, normal capillary refill. Absent: pedal edema, joint swelling, calf tenderness - Expanded Upper Extremity Exam Left Upper Arm exam: Present: normal inspection Elbow exam: Present: normal inspection Forearm Wrist exam: Present: normal inspection Hand Wrist exam: Present: normal inspection, full ROM, tenderness. Absent: swelling, abrasion, laceration, ecchymosis, deformity, crepidus, dislocation, erythema Vascular: Present: normal capillary refill, radial pulse. Absent: vascular compromise, Pallo - Back Exam Back exam: Present: normal inspection. Absent: vertebral tenderness - Neurological Exam Neurological exam: Present: alert, oriented X3, CN II-XII intact, normal gait, reflexes normal. Absent: motor sensory deficit - Psychiatric Psychiatric exam: Present: normal affect, normal mood - Skin Skin exam: Present: warm, dry, intact, normal color ED Course Vital Signs 12/07/21 14:47 Temperature 97.9 F Pulse Rate 80 Respiratory 18 Rate Blood Pressure 147/96 [Right] O2 Sat by Pulse 98 Oximetry ED Medical Decision Making - Medical Decision Making 56-year-old black female with a past medical history of hypertension presents to the emergency department for evaluation of pain and numbness to the left hand. She states that over the last several months, she has had intermittent pain and numbness to her left hand with tingling intermittently to her fingers. She states that symptoms are worse when she works and tends to get better when she is off. She states that sometimes she has numbness to her entire left arm. She states that this morning she woke up with increased pain with a burning-like fe eling to the middle of her hand with some numbness to her third and fourth fingers. She states that she did sleep awkwardly last night and woke up lying on top of her hand. She states that symptoms have improved some since this morning but has not totally gone away. She denies any unilateral weakness, headache, vision problems, abnormal gait, and abnormal speech. Exam most consistent with cervical radicular type pain. Patient will be treated with 6-day course of steroids and advised to follow-up with her primary care provider if no improvement or worsening symptoms. She was given strict return precautions to return to the emergency department immediately if she develops any unilateral weakness, severe headache, difficulty walking, difficulty talking, or any changes in vision. She verbalizes understanding of and agreement with plan of care. Critical care attestation.: If time is entered above; I have spent that time in minutes in the direct care of this critically ill patient, excluding procedure time. ED Disposition Clinical Impression: Left hand pain, Numbness and tingling in left hand, Cervical radicular pain Disposition: HOME / SELF CARE / HOMELESS Is pt being admited?: No Does the pt Need Aspirin: No Condition: Stable Instructions: Carpal Tunnel Syndrome, [id number] Additional Instructions: Take medications as prescribed. Follow-up with your primary care provider if no improvement or worsening symptoms. Return to the emergency department as needed. Prescriptions: methylPREDNISolone [Medrol 4MG DOSEPAK (21 tabs)] 4 mg PO DAILY #1 pack Referrals: KENNEDY RODRIGUEZ MD [Staff Physician] - 3-5 Days Time of Disposition: 14:54
== END 2021-12-07 16:21 | disposition home or self-care (01) ==
LOC: ED 14:28
DX: M79.642 Pain in left hand (principal); R20.0 Anesthesia of skin; M54.12 Radiculopathy, cervical region; F17.200 Nicotine dependence, unspecified, uncomplicated; Z79.899 Other long term (current) drug therapy
CPT/HCPCS: 99282

== ENCOUNTER 2021-12-16 16:13 | Emergency (ER) | payer SELFPAY ==
[2021-12-16] MEDS ORDERED: ONDANSETRON 4 MG ODT TAB PO ONE (21:05)
[2021-12-16] MEDS ORDERED: oxyCODONE /ACETAMINOPHEN 5-325MG TAB PO ONE (21:05)
[2021-12-16] MEDS ORDERED: IBUPROFEN 600 MG TAB PO ONE (21:05)
--- NOTE | 2021-12-16 22:02 | XRay Report ---
RIGHT HIP 2 VIEW(S) INDICATION / CLINICAL INFORMATION: fall - pain COMPARISON: None available. FINDINGS: BONES / JOINT(S): No acute fracture or subluxation. No significant arthritis. SOFT TISSUES: No significant abnormality. ADDITIONAL FINDINGS: None. Signer Name: Asad Trejo MD Signed: 12/16/2021 9:57 PM Workstation Name: [id number]
--- NOTE | 2021-12-16 22:13 | XRay Report ---
RIGHT KNEE 3 VIEW(S) INDICATION / CLINICAL INFORMATION: pain - fall COMPARISON: None available. FINDINGS: BONES / JOINT(S): There is tricompartment degenerative change most prominent in the patellofemoral an d medial compartments. No fracture or dislocation is seen. SOFT TISSUES: No significant abnormality. ADDITIONAL FINDINGS: None. IMPRESSION: 1. There is tricompartment degenerative disease most prominent in the medial and patellofemoral eligio rtments. 2. No fracture or dislocation is seen. Signer Name: Asad Trejo MD Signed: 12/16/2021 10:08 PM Workstation Name: [id number]
--- NOTE | 2021-12-16 22:15 | XRay Report ---
LUMBAR SPINE 2 VIEWS INDICATION: fall - pain COMPARISON: None. FINDINGS: There is no fracture, subluxation, or other acute radiographic abnormality of the lumbar spine. Signer Name: Asad Trejo MD Signed: 12/16/2021 10:11 PM Workstation Name: [id number]
--- NOTE | 2021-12-16 23:50 | Emergency Department Report ---
ED Fall HPI - General Chief Complaint: Extremity Problem,Nontraumatic Stated Complaint: FELL ON R KNEE AND HIP Source: patient Mode of arrival: Ambulatory - History of Present Illness Initial Comments: Patient is a 56-year-old -Citizen Of The [place] female with a history of hypertension and chronic osteoarthritis who presents to the ED with complaint of acute onset persistent low back pain, right hip pain and right knee pain after she slipped and fell down on a concrete pavement 2 days ago and coming out of a public bus. Patient states that she landed on her right knee but since then the pain has been radiating from the low back diffusely to the right knee with every active range of motion or weightbearing. Patient denies head or neck injuries, loss of consciousness, headache, chest pain or shortness of breath, nausea and vomiting, change in vision, numbness and tingling or weakness of lower and upper extremities bilaterally. MD Complaint: fall, other (right knee ad right hip pain) -: days(s) (2) Fall From: standing When Fall Occurred: # days [employer] (2) Place Fall Occurred: street Loss of Consciousness: none Prolonged Down Time?: no Symptoms Prior to Fall: none Location: other (Right hip and right knee) Location - Extremities: Right: Knee (Pain) Severity: severe Severity scale (0 -10): 8 Quality: sharp, aching Context: tripped/slipped Associated Symptoms: denies. denies: headache, neck pain, numbness, weakness, c hest paint, shortness of breath, abdominal pain, hematuria, unable to walk, lightheaded, vertigo, other - Related Data Previous Rx's Medication Instructions Recorded Last Taken Type Gabapentin 300 mg PO BID 30 Days #60 cap 06/23/21 Unknown Rx Meloxicam [Mobic] 7.5 mg PO QDAY #30 tablet 06/23/21 Unknown Rx methylPREDNISolone [Medrol 4MG 4 mg PO DAILY #1 pack 12/07/21 Unknown Rx DOSEPAK (21 tabs)] Ibuprofen [Motrin] 800 mg PO Q8HR PRN #30 tablet 12/17/21 Unknown Rx methOCARBAMOL [Robaxin TAB] 750 mg PO Q8H PRN #30 tab 12/17/21 Unknown Rx predniSONE [Deltasone] 40 mg PO QDAY #10 tab 12/17/21 Unknown Rx traMADoL [Ultram] 50 mg PO Q6HR PRN #12 tablet 12/17/21 Unknown Rx Allergies Allergy/AdvReac Type Severity Reaction Status Date / Time No Known Allergies Allergy Verified 06/22/21 20:49 ED Review of Systems ROS: Stated complaint: FELL ON R KNEE AND HIP Other details as noted in HPI Constitutional: denies: chills, fever Eyes: denies: eye pain, eye discharge, vision change ENT: denies: ear pain, throat pain Respiratory: denies: cough, shortness of breath, wheezing Cardiovascular: denies: chest pain, palpitations Endocrine: no symptoms reported Gastrointestinal: denies: abdominal pain, nausea, diarrhea Genitourinary: denies: urgency, dysuria, discharge Musculoskeletal: back pain (Low back pain), arthralgia (Right knee and hip pain), myalgia. denies: joint swelling Skin: denies: rash, lesions Neurological: denies: headache, weakness, paresthesias Psychiatric: denies: anxiety, depression Hematological/Lymphatic: denies: easy bleeding, easy bruising ED Past Medical Hx - Past Medical History Hx Hypertension: Yes Hx Arthritis: Yes Additional medical history: Vertigo, Enlarged Heart - Social History Smoking Status: Current Every Day Smoker - Medications Home Medications: Home Medications Medication Instructions Recorded Confirmed Last Taken Type Gabapentin 300 mg PO BID 30 Days #60 cap 06/23/21 Unknown Rx Meloxicam [Mobic] 7.5 mg PO QDAY #30 tablet 06/23/21 Unknown Rx methylPREDNISolone [Medrol 4MG 4 mg PO DAILY #1 pack 12/07/21 Unknown Rx DOSEPAK (21 tabs)] Ibuprofen [Motrin] 800 mg PO Q8HR PRN #30 tablet 12/17/21 Unknown Rx methOCARBAMOL [Robaxin TAB] 750 mg PO Q8H PRN #30 tab 12/17/21 Unknown Rx predniSONE [Deltasone] 40 mg PO QDAY #10 tab 12/17/21 Unknown Rx traMADoL [Ultram] 50 mg PO Q6HR PRN #12 tablet 12/17/21 Unknown Rx ED Physical Exam - General Limitations: Physical Limitation General appearance: alert, in no apparent distress - Head Head exam: Present: atraumatic, normocephalic, normal inspection - Eye Eye exam: Present: normal appearance, PERRL, EOMI Pupils: Present: normal accommodation - ENT ENT exam: Present: normal exam, normal orophraynx, mucous membranes moist, TM's normal bilaterally, normal external ear exam - Neck Neck exam: Present: normal inspection, full ROM. Absent: tenderness - Respiratory Respiratory exam: Present: normal lung sounds bilaterally. Absent: respiratory distress, wheezes, rales, rhonchi, chest wall tenderness, accessory muscle use, decreased breath sounds, prolonged expiratory - Cardiovascular Cardiovascular Exam: Present: regular rate, normal rhythm, normal heart sounds. Absent: systolic murmur, diastolic murmur, rubs, gallop - GI/Abdominal GI/Abdominal exam: Present: soft, normal bowel sounds. Absent: tenderness, guarding, rebound, hyperactive bowel sounds, hypoactive bowel sounds, organomegaly - Extremities Exam Extremities exam: Present: normal inspection, tenderness (Palpable right knee and right hip tenderness with limited range of motion due to pain.), normal capillary refill. Absent: full ROM (Right hip and knee limited range of motion due to pain), pedal edema, joint swelling, calf tenderness - Back Exam Back exam: Present: normal inspection, full ROM, tenderness (Palpable lumbosacral paraspinal musculoskeletal tenderness), muscle spasm, paraspinal tenderness. Absent: CVA tenderness (R), CVA tenderness (L), vertebral tenderness - Neurological Exam Neurological exam: Present: alert, oriented X3, CN II-XII intact, normal gait, reflexes normal - Psychiatric Psychiatric exam: Present: normal affect, normal mood - Skin Skin exam: Present: warm, dry, intact, normal color. Absent: rash ED Course Vital Signs 12/16/21 17:02 Temperature 98.0 F Pulse Rate 72 Respiratory 18 Rate Blood Pressure 135/81 [Left] O2 Sat by Pulse 96 Oximetry ED Medical Decision Making - Radiology Data Radiology results: report reviewed, image reviewed [facility] [address] [place] [address] XRay Report Signed Patient: NAKUL SORENSEN MR#: [id number] : 1965 Acct:[id number] Age/Sex: 56 / F ADM Date: 12/16/21 Loc: ED Attending Dr: Ordering Physician: RHIANNA ADAM Date of Service: 12/16/21 Procedure(s): XR spine lumbosacral 2-3V Accession Number(s): [id number] cc: RHIANNA ADAM Fluoro Time In Minutes: LUMBAR SPINE 2 VIEWS INDICATION: fall - pain COMPARISON: None. FINDINGS: There is no fracture, subluxation, or other acute radiographic abnormality of the lumbar spine. Signer Name: Asad Trejo MD Signed: 12/16/2021 10:11 PM Workstation Name: [id number] Transcribed By: SS Dictated By: Asad Trejo MD Electronically Authenticated By: Asad Trejo MD Signed Date/Time: 12/16/212210 DD/ 08 TD/TT: [facility] [address] [place] [address] XRay Report Signed Patient: NAKUL SORENSEN MR#: [id number] : 1965 Acct:[id number] Age/Sex: 56 / F ADM Date: 12/16/21 Loc: ED Attending Dr: Ordering Physician: RHIANNA ADAM Date of Service: 12/16/21 Procedure(s): XR knee 3V RT Accession Number(s): [id number] cc: RHIANNA ADAM Fluoro Time In Minutes: RIGHT KNEE 3 VIEW(S) INDICATION / CLINICAL INFORMATION: pain - fall COMPARISON: None available. FINDINGS: BONES / JOINT(S): There is tricompartment degenerative change most prominent in the patellofemoral and medial compartments. No fracture or dislocation is seen. SOFT TISSUES: No significant abnormality. ADDITIONAL FINDINGS: None. IMPRESSION: 1. There is tricompartment degenerative disease most prominent in the medial and patellofemoral compartments. 2. No fracture or dislocation is seen. Signer Name: Asad Trejo MD Signed: 12/16/2021 10:08 PM Workstation Name: [id number] Transcribed By: Dictated By: Asad Trejo MD Electronically Authenticated By: Asad Trejo MD Signed Date/Time: 12/16/212207 DD/ 05 TD/TT: [facility] [address] [place] [address] XRay Report Signed Patient: NAKUL SORENSEN MR#: [id number] : 1965 Acct:[id number] Age/Sex: 56 / F ADM Date: 12/16/21 Loc: ED Attending Dr: Ordering Physician: RHIANNA ADAM Date of Service: 12/16/21 Procedure(s): XR hip 2-3V RT Accession Number(s): [id number] cc: RHIANNA ADAM Fluoro Time In Minutes: RIGHT HIP 2 VIEW(S) INDICATION / CLINICAL INFORMATION: fall - pain COMPARISON: None available. FINDINGS: BONES / JOINT(S): No acute fracture or subluxation. No significant arthritis. SOFT TISSUES: No significant abnormality. ADDITIONAL FINDINGS: None. Signer Name: Asad Trejo MD Signed: 12/16/2021 9:57 PM Workstation Name: [id number] Transcribed By: Dictated By: Asad Trejo MD Electronically Authenticated By: Asad Trejo MD Signed Date/Time: 12/16/212156 DD/ 56 TD/TT: - Medical Decision Making This is a 56-year-old -Citizen Of [place] female with a history of hypertension and chronic osteoarthritis who presents to the ED with complaint of acute onset persistent low back pain, right hip pain and right knee pain after she slipped and fell down on a concrete pavement 2 days ago and coming out of a public bus. Patient states that she landed on her right knee but since then the pain has been radiating from the low back diffusely to the right knee with every active range of motion or weightbearing. In the ED, patient is alert and oriented x3 and is not in any distress. Patient however appears to be in pain. Patient was treated for pain in the ED. The L-spine x-ray showed no acute fractures or subluxations. The right hip x-ray showed no acute fractures and subluxations. The right knee x-rays showed no acute fractures or subluxation but tricompartmental degenerative joint disease. On reevaluation, patient's pain is well controlled medication. Patient will discharge home on pain medications and advised to follow-up with her primary care physician in 7 to 10 days for re evaluation or return to the ED immediately if symptoms get worse. - Differential Diagnosis Hip contusion; right knee sprain; chronic osteoarthritis; muscle spasm; Critical care attestation.: If time is entered above; I have spent that time in minutes in the direct care of this critically ill patient, excluding procedure time. ED Disposition Clinical Impression: Spasm of muscle of lower back Right knee injury Qualifiers: Encounter type: initial encounter Qualified Code(s): S89.91XA - Unspecified injury of right lower leg, initial encounter Sprain of right knee/leg Qualifiers: Encounter type: initial encounter Qualified Code(s): S83.91XA - Sprain of unspecified site of right knee, initial encounter Right knee DJD Qualifiers: Osteoarthritis type: primary Qualified Code(s): M17.11 - Unilateral primary osteoarthritis, right knee Contusion of right hip and thigh Qualifiers: Encounter type: initial encounter Qualified Code(s): S70.01XA - Contusion of right hip, initial encounter; S70.11XA - Contusion of right thigh, initial encounter Disposition: HOME / SELF CARE / HOMELESS Is pt being admited?: No Does the pt Need Aspirin: No Condition: Stable Instructions: Muscle Cramps and Spasms, [id number], Contusion, [id number], Osteoarthritis, Knee Sprain, Adult, [id number], Arthritis, [id number], Hip Sprain Additional Instructions: The L-spine x-ray showed no acute fracture or subluxation. Right hip x-ray showed no acute fractures or subluxation. Right knee x-ray also showed no acute fracture or subluxation but chronic tricompartmental degenerative joint disease. Therefore take medication with food, drink plenty of fluids, follow-up with your primary care physician 5 to 7 days for reevaluation. Return to the ED immediately if symptoms get worse. Prescriptions: predniSONE [Deltasone] 40 mg PO QDAY #10 tab Ibuprofen [Motrin] 800 mg PO Q8HR PRN #30 tablet PRN Reason: Pain , Severe (7-10) methOCARBAMOL [Robaxin TAB] 750 mg PO Q8H PRN #30 tab PRN Reason: Muscle Spasm traMADoL [Ultram] 50 mg PO Q6HR PRN #12 tablet PRN Reason: Pain Referrals: [facility] [Provider Group] - 3-5 Days Forms: Work/School Release Form(ED) Time of Disposition: 00:10 Print Language: SPANISH
[2021-12-17 00:22] VITALS: BP 142/87
== END 2021-12-17 00:31 | disposition home or self-care (01) ==
LOC: ED 16:13
DX: S83.91XA Sprain of unspecified site of right knee, initial encounter (principal); S89.91XA Unspecified injury of right lower leg, initial encounter; S70.01XA Contusion of right hip, initial encounter; M17.11 Unilateral primary osteoarthritis, right knee; X58.XXXA Exposure to other specified factors, initial encounter; Y93.89 Activity, other specified; Y92.89 Other specified places as the place of occurrence of the external cause; Y99.8 Other external cause status
CPT/HCPCS: 72100; 99283; J3490; Q0162